=== PATIENT | female | born 2000 ===

== ENCOUNTER 2024-08-08 12:49 | Outpatient (REF) | payer SELFPAY ==
[2024-08-08 14:11] LABS: HIV 1/2 Ab Rapid Negative (Negative)
[2024-08-10 09:47] LABS: Hepatitis B Surface Ag Negative (Negative)
[2024-08-10 11:10] LABS: Hepatitis C Ab w Rflx HCV PCR Reactive (Negative)
[2024-08-12 14:36] LABS: HCV RNA Detection Quantitative 2020000 IU/mL (Undetected); HCV RNA Qualitative Detected (Undetected)
[2024-08-18 16:15] LABS: HIV-1/2 Ag & Ab Screen Negative (Negative)
== END 2024-08-08 12:50 | disposition home or self-care (01) ==
LOC: LBN 12:49
PROVIDERS: Visit Provider Family Medicine
DX: Z11.4 Encounter for screening for human immunodeficiency virus [HIV] (principal); Z11.59 Encounter for screening for other viral diseases
CPT/HCPCS: 86803; 87340; 87389; 87522